=== PATIENT | female | born 1980 | race Caucasian/White ===

== ENCOUNTER → 2017-03-10 | Outpatient (CLI) | payer SELFPAY ==
--- NOTE | 2017-03-10 15:33 | US ---
EXAMINATION: Left breast ultrasound HISTORY: Lump COMPARISON: None TECHNIQUE: Grayscale and color Doppler images obtained within the upper outer left breast within the region of concern. FINDINGS: There is a tiny oval 5 x 2 mm hypodensity within the upper outer quadrant of the left s[address] near the axilla. This demonstrates no shadowing or internal color Doppler flow. Given the locatio n and appearance this likely represents a tiny lymph node. However no hilum is identified. IMPRESSION: 1. Probable tiny lymph node within the upper outer quadrant. Follow-up in 6 months may be beneficial .
== END ==
LOC: MW.US 10:59
PROVIDERS: ATTEND Obstetrics & Gynecology
DX: N63 Unspecified lump in breast (principal)
CPT/HCPCS: 76642-LT; 76642-LT-26

== ENCOUNTER 2019-02-10 09:24 | Emergency (ER) | payer BC ==
--- NOTE | 2019-02-10 10:35 | EDM.PDOC ---
ED HPI GENERAL MEDICAL PROBLEM - General Chief Complaint: Lower Extremity Injury/Pain Stated Complaint: FOOT PAIN Time Seen by Provider: 02/10/19 10:06 Source of Information: Reports: Patient History Limitations: Reports: No Limitations - History of Present Illness INITIAL COMMENTS - FREE TEXT/NARRATIVE: HISTORY AND PHYSICAL: History of present illness: Patient is a 38-year-old female who presents to the emergency room today with complaints of right heel pain. She states that when she bears weight or stretches the posterior calf she can feel pain from the bottom of her heel going up to the calf, describes this as pain in the heel but a stretching sensation in the. She denies any injury, trauma or falls. She is able to ambulate although does notice pain to the pinpoint area. She denies any fever, chills, chest pain, shortness of breath or cough. Denies any GI or symptoms. Review of systems: As per history of present illness and below otherwise all systems reviewed and negative. Past medical history: As per history of present illness and as reviewed below otherwise noncontributory. Surgical history: As per history of present illness and as reviewed below otherwise noncontributory. Social history: See social history for further information Family history: As per history of present illness and as reviewed below otherwise noncontributory. Physical exam: General: Well-developed and well-nourished 38 year old female. Alert and oriented. Nontoxic appearing and in no acute distress. HEENT: Atraumatic, normocephalic, pupils equal and reactive bilaterally, negative for conjunctival pallor or scleral icterus, mucous membranes moist, neck supple, nontender, trachea midline. No drooling or trismus noted. No meningeal signs. No hot potato voice noted. Lungs: Clear to auscultation, breath sounds equal bilaterally, chest nontender. Heart: S1S2, regular rate and rhythm without overt murmur Abdomen: Soft, nondistended, nontender. Pelvis: Stable nontender. Genitourinary: Deferred. Rectal: Deferred. Skin: Intact, warm, dry. No lesions or rashes noted. Extremities: Atraumatic, negative for cords or calf pain. Neurovascular unremarkable. Neuro: Awake, alert, oriented. Cranial nerves II through XII unremarkable. Cerebellum unremarkable. Motor and sensory unremarkable throughout. Exam nonfocal. Notes: X-ray shows no acute findings. Patient's symptomatology and examination is consistent with plantar fasciitis. We discussed supportive care measures were reviewed and discussed. Encouraged her to follow-up with podiatry. Voices understanding and is agreeable to plan of care. Denies any further questions or concerns at this time. Diagnostics: Calcaneus x-ray Therapeutics: None Prescription: Diclofenac Impression: Plantar fasciitis, right Plan: 1. Over the next few days to Try to rest, avoiding any strenuous physical activity. Please make sure you have good arch support in shoes. 2. You may perform stretching and strengthening exercises (tennis ball, flexing up/own with or without a band, towel stretch) 3. Prescribed anti-inflammatory medication routinely with food as we discussed. 4. Follow-up with your primary care provider as we discussed. Return to the ED as needed and as discussed. Definitive disposition and diagnosis as appropriate pending reevaluation and review of above. Right Foot Pain Score (Numeric/FACES): 5 - Related Data Allergies Allergy/AdvReac Type Severity Reaction Status Date / Time No Known Allergies Allergy Verified 02/10/19 09:31 Home Meds: Home Meds Multivitamin [Multivitamins] 1 tab PO DAILY 04/01/16 [History] Diclofenac Sodium [Voltaren] 50 mg PO TID PRN #30 tab.ec 02/10/19 [Rx] traMADol [Ultram] 50 mg PO Q6H PRN #10 tab 02/10/19 [Rx] Past Medical History - Past Health History Medical/Surgical History: Denies Medical/Surgical History HEENT History: Reports: None Other HEENT History: Tubes in both ears Cardiovascular History: Reports: None Respiratory History: Reports: None Gastrointestinal History: Reports: None SAUTE CHEF History: Reports: Musculoskeletal History: Reports: None Neurological History: Reports: None Psychiatric History: Reports: Depression Endocrine/Metabolic History: Reports: None Hematologic History: Reports: None Immunologic History: Reports: None Oncologic (Cancer) History: Reports: None Dermatologic History: Reports: None - Infectious Disease History Infectious Disease History: Reports: Chicken Pox - Past Surgical History Head Surgeries/Procedures: Reports: None HEENT Surgical History: Reports: Adenoidectomy, Tonsillectomy Female Surgical History: Reports: Breast Implant, Section, LEEP Social & Family History - Family History Family Medical History: Noncontributory - Tobacco Use Smoking Status *Q: Current Every Day Smoker Years of Tobacco use: 4 Packs/Tins Daily: 1 - Caffeine Use Caffeine Use: Reports: Coffee, Soda - Recreational Drug Use Recreational Drug Use: No Review of Systems - Review of Systems Review Of Systems: ROS reveals no pertinent complaints other than HPI. ED EXAM, GENERAL - Physical Exam Exam: See Below (See dictation) Course - Vital Signs Last Recorded V/S: Last Vital Signs Temp 97.6 F 02/10/19 09:31 Pulse 70 02/10/19 11:05 Resp 18 02/10/19 11:05 BP 113/66 02/10/19 11:05 Pulse Ox 98 02/10/19 11:05 Departure - Departure Time of Disposition: 10:34 Disposition: Home, Self-Care 01 Clinical Impression: Plantar fasciitis of right foot - Discharge Information Prescriptions: Diclofenac Sodium [Voltaren] 50 mg PO TID PRN #30 tab.ec PRN Reason: Pain traMADol [Ultram] 50 mg PO Q6H PRN #10 tab PRN Reason: Pain Instructions: Plantar Fasciitis With Rehab-SportsMed Referrals: Jad Mendoza MD [Primary Care Provider] - Forms: ED Department Discharge Additional Instructions: The following information is given to patients seen in the emergency department who are being discharged to home. This information is to outline your options for follow-up care. We provide all patients seen in our emergency department with a follow-up referral. The need for follow-up, as well as the timing and circumstances, are variable depending upon the specifics of your emergency department visit. If you don't have a primary care physician on staff, we will provide you with a referral. We always advise you to contact your personal physician following an emergency department visit to inform them of the circumstance of the visit and for follow-up with them and/or the need for any referrals to a consulting specialist. The emergency department will also refer you to a specialist when appropriate. This referral assures that you have the opportunity for follow-up care with a specialist. All of these measure are taken in an effort to provide you with optimal care, which includes your follow-up. Under all circumstances we always encourage you to contact your private physician who remains a resource for coordinating your care. When calling for follow-up care, please make the office aware that this follow-up is from your recent emergency room visit. If for any reason you are refused follow-up, please contact the [facility] Emergency Department at and asked to speak to the emergency department charge nurse. [facility] [address] [address] [facility] [address] [place] [id number] [facility] [address] [place] [id number] 1. Over the next few days to avoid any strenuous physical activity. Please make sure you have good arch support in shoes. 2. You may perform stretching and strengthening exercises (tennis ball, flexing up/own with or without a band, towel stretch) 3. Prescribed anti-inflammatory medication routinely with food as we discussed. 4. Follow-up with your primary care provider as we discussed. Return to the ED as needed and as discussed.
--- NOTE | 2019-02-10 10:45 | CR ---
INDICATION: pain in heel to the arch of foot and up towards ankle. no injury. pain started yesterday COMPARISON: None. FINDINGS: Two views of the right calcaneus demonstrate no evidence of fracture or dislocation. No suspicious bony sclerosis or periosteal reaction. Early Achilles insertional enthesophyte formation. Soft tissues are unremarkable. IMPRESSION: No acute osseous abnormality. Dictated by Jacob Navarro MD @ 02/10/2019 10:43:00 AM Dictated by: Jacob Navarro MD @ 02/10/2019 10:43:22 (Electronically Signed)
[2019-02-10 11:12] VITALS: BP 113/66
== END 2019-02-10 11:05 | disposition home or self-care (01) ==
LOC: MW.ED 09:24
DX: M72.2 Plantar fascial fibromatosis (principal); F17.210 Nicotine dependence, cigarettes, uncomplicated; Z79.899 Other long term (current) drug therapy
CPT/HCPCS: 73650-26-RT; 73650-RT; 99283-25

== ENCOUNTER 2019-02-19 15:30 | Emergency (ER) | payer BC ==
--- NOTE | 2019-02-19 16:05 | EDM.PDOC ---
ED HPI GENERAL MEDICAL PROBLEM - General Chief Complaint: Gastrointestinal Problem Stated Complaint: ANAL BLEEDING Time Seen by Provider: 02/19/19 15:55 Source of Information: Reports: Patient History Limitations: Reports: No Limitations - History of Present Illness INITIAL COMMENTS - FREE TEXT/NARRATIVE: HISTORY AND PHYSICAL: History of present illness: Patient is a 38-year-old female presents to the ED today with concerns of rectal bleeding. Patient states that she has had rectal bleeding off and on since her several years ago. Patient states that over the past couple weeks with her bowel movement she has had a large amount of blood. She states that while she was at work today she had gone to the bathroom. She said that when she got back to her desk, blood had gone all the way down her pant leg. Patient states she's had large amounts of blood like this happen on several occasions but worse over the past couple days. Patient states that since it has been worsening, she has been taking MiraLAX so she will have diarrhea. She states that solid bowel movements make the bleeding even worse. Patient does routinely follow with Dr. Mendoza. Patient states she does have some cramping after bowel movements but does not have constant abdominal pain. Upon arrival to the ED she does not have any abdominal pain. Patient denies fever, chills, nausea, vomiting, burning with urination, vaginal bleeding, blood in her urine, shortness of breath, cough, palpitations, chest pain, or all other GI, , respiratory, or cardiovascular concerns. Patient denies any health history. Review of systems: As per history of present illness and below otherwise all systems reviewed and negative. Past medical history: As per history of present illness and as reviewed below otherwise noncontributory. Surgical history: As per history of present illness and as reviewed below otherwise noncontributory. Social history: See social history for further information Family history: As per history of present illness and as reviewed below otherwise noncontributory. Physical exam: General: Patient is alert, oriented, and in no acute distress. She is sitting comfortable on exam table. HEENT: Atraumatic, normocephalic, pupils equal and reactive bilaterally, negative for conjunctival pallor or scleral icterus, mucous membranes moist, TMs normal bilaterally, throat clear, neck supple, nontender, trachea midline. No drooling or trismus noted. No meningeal signs. No hot potato voice noted. Lungs: Clear to auscultation, breath sounds equal bilaterally, chest nontender. Heart: S1S2, regular rate and rhythm without overt murmur Abdomen: Soft, nondistended, nontender. Negative for masses or hepatosplenomegaly. Negative for costovertebral tenderness. Pelvis: Stable nontender. Genitourinary: Deferred. Rectal: There is a 1 cm x 1 cm external hemorrhoid that is painful to palpation. Hemoccult positive. Rectal tone intact. No obvious fissures or rashes. No rectal masses noted. Skin: Intact, warm, dry. No lesions or rashes noted. Extremities: Atraumatic, negative for cords or calf pain. Neurovascular unremarkable. Neuro: Awake, alert, oriented. Cranial nerves II through XII unremarkable. Cerebellum unremarkable. Motor and sensory unremarkable throughout. Exam nonfocal. Notes: On exam, patient does have an external hemorrhoid which is painful to palpation. Discussed the importance for follow up with her primary care provider. Supportive care measures were reviewed and discussed. Voices understanding and is agreeable to plan of care. Denies any further questions or concerns at this time. Diagnostics: CBC, CMP, Hemoccult Therapeutics: None Prescription: Anusol Impression: External hemorrhoid Plan: 1. Apply medication as prescribed. You can alternate ibuprofen and Tylenol for pain and discomfort. 2. Follow-up with your primary care provider as discussed. 3. Return to the ED as needed and as discussed. Definitive disposition and diagnosis as appropriate pending reevaluation and review of above. - Related Data Allergies Allergy/AdvReac Type Severity Reaction Status Date / Time No Known Allergies Allergy Verified 02/19/19 16:04 Home Meds: Home Meds Multivitamin [Multivitamins] 1 tab PO DAILY 04/01/16 [History] Diclofenac Sodium [Voltaren] 50 mg PO TID PRN #30 tab.ec 02/10/19 [Rx] traMADol [Ultram] 50 mg PO Q6H PRN #10 tab 02/10/19 [Rx] Hydrocortisone [Anusol-HC] 30 gm RC QID PRN #1 tube 02/19/19 [Rx] Past Medical History - Past Health History Medical/Surgical History: Denies Medical/Surgical History HEENT History: Reports: None Other HEENT History: Tubes in both ears Cardiovascular History: Reports: None Respiratory History: Reports: None Gastrointestinal History: Reports: None 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: Musculoskeletal History: Reports: None Neurological History: Reports: None Psychiatric History: Reports: Depression Endocrine/Metabolic History: Reports: None Hematologic History: Reports: None Immunologic History: Reports: None Oncologic (Cancer) History: Reports: None Dermatologic History: Reports: None - Infectious Disease History Infectious Disease History: Reports: Chicken Pox - Past Surgical History Head Surgeries/Procedures: Reports: None HEENT Surgical History: Reports: Adenoidectomy, Tonsillectomy Female Surgical History: Reports: Breast Implant, Section, LEEP Social & Family History - Family History Family Medical History: Noncontributory - Caffeine Use Caffeine Use: Reports: Coffee, Soda ED ROS GENERAL - Review of Systems Review Of Systems: ROS reveals no pertinent complaints other than HPI. ED EXAM, GI/ABD - Physical Exam Exam: See Below (See dictation) Course - Vital Signs Last Recorded V/S: Last Vital Signs Temp 99.1 F 02/19/19 16:02 Pulse 89 02/19/19 16:02 Resp 16 02/19/19 16:02 BP 100/53 L 02/19/19 16:02 Pulse Ox 96 02/19/19 16:02 - Orders/Labs/Meds Orders: Active Orders 24 hr Category Date Time Status Orthostatic Vital Signs [RC] ASDIRECTED Care 02/19/19 16:02 Active CMP [COMPREHENSIVE METABOLIC PN,CMP] [CHEM] Stat Lab 02/19/19 16:05 Received Labs: Laboratory Tests 02/19/19 Range/Units 16:05 WBC 9.75 (4.0-11.0) K/uL RBC 4.24 L (4.30-5.90) M/uL Hgb 13.2 (12.0-16.0) g/dL Hct 37.9 (36.0-46.0) % MCV 89.4 (80.0-98.0) fL MCH 31.1 (27.0-32.0) pg MCHC 34.8 (31.0-37.0) g/dL RDW Std Deviation 38.9 (28.0-62.0) fl RDW Coeff of Mari 12 (11.0-15.0) % Plt Count 269 (150-400) K/uL MPV 9.30 (7.40-12.00) fL Neut % (Auto) 66.8 (48.0-80.0) % Lymph % (Auto) 25.8 (16.0-40.0) % [place] % (Auto) 5.5 (0.0-15.0) % Eos % (Auto) 1.6 (0.0-7.0) % Baso % (Auto) 0.3 (0.0-1.5) % Neut # (Auto) 6.5 H (1.4-5.7) K/uL Lymph # (Auto) 2.5 H (0.6-2.4) K/uL [place] # (Auto) 0.5 (0.0-0.8) K/uL Eos # (Auto) 0.2 (0.0-0.7) K/uL Baso # (Auto) 0.0 (0.0-0.1) K/uL Nucleated RBC % 0.0 /100WBC Nucleated RBCs # 0 K/uL Departure - Departure Time of Disposition: 16:34 Disposition: Home, Self-Care 01 Clinical Impression: External hemorrhoid - Discharge Information Prescriptions: Hydrocortisone [Anusol-HC] 30 gm RC QID PRN #1 tube PRN Reason: Bleeding Instructions: Hemorrhoids, [id number] Referrals: PCP,Unknown [Primary Care Provider] - Forms: ED Department Discharge Additional Instructions: The following information is given to patients seen in the emergency department who are being discharged to home. This information is to outline your options for follow-up care. We provide all patients seen in our emergency department with a follow-up referral. The need for follow-up, as well as the timing and circumstances, are variable depending upon the specifics of your emergency department visit. If you don't have a primary care physician on staff, we will provide you with a referral. We always advise you to contact your personal physician following an emergency department visit to inform them of the circumstance of the visit and for follow-up with them and/or the need for any referrals to a consulting specialist. The emergency department will also refer you to a specialist when appropriate. This referral assures that you have the opportunity for follow-up care with a specialist. All of these measure are taken in an effort to provide you with optimal care, which includes your follow-up. Under all circumstances we always encourage you to contact your private physician who remains a resource for coordinating your care. When calling for follow-up care, please make the office aware that this follow-up is from your recent emergency room visit. If for any reason you are refused follow-up, please contact the [facility] Emergency Department at and asked to speak to the emergency department charge nurse. [facility] [address] [place] [id number] [facility] [address] [place] [id number] 1. Apply medication as prescribed. You can alternate ibuprofen and Tylenol for pain and discomfort. 2. Follow-up with your primary care provider as discussed. 3. Return to the ED as needed and as discussed. - My Orders Last 24 Hours: My Active Orders 02/19/19 16:02 Orthostatic Vital Signs [RC] ASDIRECTED 02/19/19 16:05 CMP [COMPREHENSIVE METABOLIC PN,CMP] [CHEM] Stat - Assessment/Plan Last 24 Hours: My Active Orders 02/19/19 16:02 Orthostatic Vital Signs [RC] ASDIRECTED 02/19/19 16:05 CMP [COMPREHENSIVE METABOLIC PN,CMP] [CHEM] Stat
[2019-02-19 16:38] LABS: CHLORIDE,CL 104 mmol/L (98-107); SODIUM,NA 138 mmol/L (136-145)
[2019-02-19 16:55] VITALS: BP 121/73
== END 2019-02-19 16:56 | disposition home or self-care (01) ==
LOC: MW.ED 15:30
DX: K64.4 Residual hemorrhoidal skin tags (principal); Z79.899 Other long term (current) drug therapy
CPT/HCPCS: 36415; 80053; 85025; 99283

== ENCOUNTER 2019-03-20 08:44 | Day surgery (SDC) | payer BC ==
[~2019-03-20 08:44] MED LIST: Lactated Ringers 1,000 ML IV SCH; Sodium Chloride 0.9% 10 ML SDV IV PRN; Sodium Chloride 0.9% 10 ML Syringe FLUSH PRN; Sodium Chloride 0.9% 2.5 ML Syringe FLUSH PRN
[2019-03-20] MEDS ORDERED: Midazolam 1 MG/ML 2 ML SDV ONE (10:06)
[2019-03-20] MEDS ORDERED: Lidocaine 2% 5 ML SDV ONE (10:06)
[2019-03-20] MEDS ORDERED: fentaNYL 100 MCG/2 ML SDV ONE (10:06)
[2019-03-20] MEDS ORDERED: Propofol 200 MG/20 ML SDV ONE ×2 (10:07→11:08)
[2019-03-20] MEDS ORDERED: Scopolamine 1.5 MG Transdermal Patch TOP ONE (10:25)
--- NOTE | 2019-03-20 10:35 | PCM.PREANE ---
Preanesthetic Assessment - Anesthesia/Transfusion/Family Hx Type of Anesthesia Reaction: Excessive Nausea/Vomiting (scopolamine patch works well) Other Type of Anesthesia Reaction Comment: "N&V with c/sections" Family History of Anesthesia Reaction: No Transfusion History: No Prior Transfusion(s) - Review of Systems General: No Symptoms Pulmonary: No Symptoms Cardiovascular: No Symptoms Gastrointestinal: No Symptoms Neurological: No Symptoms Other: Reports: None - Physical Assessment NPO Status Date: 03/20/19 NPO Status Time: 07:00 Respiratory Rate: 18 Vital Signs: Last Vital Signs Temp 36.2 C 03/20/19 09:00 Pulse 72 03/20/19 09:00 Resp 18 03/20/19 09:00 BP 107/69 03/20/19 09:00 Pulse Ox Height: 1.63 m Weight: 51.71 kg ASA Class: 2 Mental Status: Alert & Oriented x3 Airway Class: Mallampati = 2 Dentition: Reports: Normal Dentition Thyro-Mental Finger Breadths: 3 Mouth Opening Finger Breadths: 3 ROM/Head Extension: Full Lungs: Clear to Auscultation, Normal Respiratory Effort Cardiovascular: Regular Rate, Regular Rhythm - Lab Values: Laboratory Last Values Urine HCG, Qual NEGATIVE (NEGATIVE) 03/20/19 09:15 - Allergies Allergies/Adverse Reactions: Allergies Allergy/AdvReac Type Severity Reaction Status Date / Time No Known Allergies Allergy Verified 03/15/19 13:49 - Anesthesia Plan Pre-Op Medication Ordered: Other (scopolamine patch risks and benefits discussed. patient and significant other know to remove the patch on TuesdayMarch 23. ) - Acknowledgements Anesthesia Type Planned: MAC Pt an Appropriate Candidate for the Planned Anesthesia: Yes Alternatives and Risks of Anesthesia Discussed w Pt/Guardian: Yes Pt/Guardian Understands and Agrees with Anesthesia Plan: Yes PreAnesthesia Questionnaire - Past Health History Medical/Surgical History: Denies Medical/Surgical History HEENT History: Reports: None Cardiovascular History: Reports: None Respiratory History: Reports: Other (See Below) (chronic tobacco use for 4 years.) Gastrointestinal History: Reports: GERD (noted in chart, but patient denies today), Hemorrhoids Genitourinary History: Reports: None 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: Musculoskeletal History: Reports: Back Pain, Chronic (sacral back pain), Other ( See Below) (bilateral plantar fasciitis, diffuse leg pain) Neurological History: Reports: None Psychiatric History: Reports: Depression Endocrine/Metabolic History: Reports: None Hematologic History: Reports: None Immunologic History: Reports: None Oncologic (Cancer) History: Reports: None Dermatologic History: Reports: None - Infectious Disease History Infectious Disease History: Reports: Chicken Pox - Past Surgical History Head Surgeries/Procedures: Reports: None HEENT Surgical History: Reports: Adenoidectomy, Myringotomy w Tube(s), Naso- Sinus Surgery, Tonsillectomy Other HEENT Surgeries/Procedures: cholesteatoma surgery, Cardiovascular Surgical History: Reports: None Respiratory Surgical History: Reports: None GI Surgical History: Reports: None Female Surgical History: Reports: Breast Implant, Section, LEEP Endocrine Surgical History: Reports: None Neurological Surgical History: Reports: None Musculoskeletal Surgical History: Reports: None Oncologic Surgical History: Reports: None Dermatological Surgical History: Reports: None - SUBSTANCE USE Smoking Status *Q: Current Every Day Smoker Tobacco Use Within Last Twelve Months: Cigarettes Days Per Week of Alcohol Use: 0 (history of etoh abuse, NONE NOW for 16 years) Recreational Drug Use History: No - HOME MEDS Home Medications: Home Meds RX: Multivitamin [Multivitamins] 1 tab PO DAILY 04/01/16 [History] Hydrocortisone [Anusol-HC] 1 applic RECTAL ASDIRECTED PRN 03/16/19 [History] RX: Omeprazole 20 mg PO DAILY 03/16/19 [History] - CURRENT (IN HOUSE) MEDS Current Meds: Current Medications Lactated Ringer's (Ringers, Lactated) 1,000 mls @ 125 mls/hr IV ASDIRECTED SOMMER Last Admin: 03/20/19 09:29 Dose: 125 mls/hr Lactated Ringer's (Ringers, Lactated) 1,000 mls @ 125 mls/hr IV ASDIRECTED SOMMER Sodium Chloride (Saline Flush) 10 ml FLUSH ASDIRECTED PRN PRN Reason: Keep Vein Open Sodium Chloride (Saline Flush) 2.5 ml FLUSH ASDIRECTED PRN PRN Reason: Keep Vein Open Sodium Chloride (Saline Flush) 10 ml FLUSH ASDIRECTED PRN PRN Reason: Keep Vein Open Sodium Chloride (Saline Flush) 2.5 ml FLUSH ASDIRECTED PRN PRN Reason: Keep Vein Open Sodium Chloride (Normal Saline) 10 ml IV ASDIRECTED PRN PRN Reason: IV Use Sodium Chloride (Saline Flush) 10 ml FLUSH ASDIRECTED PRN PRN Reason: Keep Vein Open Sodium Chloride (Saline Flush) 2.5 ml FLUSH ASDIRECTED PRN PRN Reason: Keep Vein Open Sodium Chloride (Normal Saline) 10 ml IV ASDIRECTED PRN PRN Reason: IV Use Discontinued Medications Fentanyl (Sublimaze) Confirm Administered Dose 100 mcg .ROUTE .STK-MED ONE Stop: 03/20/19 10:07 Lidocaine (Xylocaine-Mpf 2%) Confirm Administered Dose 5 ml .ROUTE .STK-MED ONE Stop: 03/20/19 10:07 Midazolam HCl (Versed 1 Mg/Ml) Confirm Administered Dose 2 mg .ROUTE .STK-MED ONE Stop: 03/20/19 10:07 Propofol (Diprivan 20 Ml) Confirm Administered Dose 200 mg .ROUTE .STK-MED ONE Stop: 03/20/19 10:08 Scopolamine (Transderm-Scop) 1.5 mg TOP ONETIME ONE Stop: 03/20/19 10:26
--- NOTE | 2019-03-20 11:20 | PCM.OPNOTE ---
- General Post-Op/Procedure Note Date of Surgery/Procedure: 03/20/19 Operative Procedure(s): diagnostic EGD and colonoscopy Findings: normal EGD and grade 4 hemorrhoids Pre Op Diagnosis: GERD, bright red blood per rectum, change in bowel habits Post-Op Diagnosis: grade 4 hemorrhoids, normal EGD Anesthesia Technique: MAC Primary Surgeon: Angella Buckley Pathology: stomach biopsies EBL in mLs: 0 Condition: Good
--- NOTE | 2019-03-20 11:45 | PCM.POSTAN ---
POST ANESTHESIA ASSESSMENT - MENTAL STATUS Mental Status: Alert, Oriented - RESPIRATORY Respiratory Status: Respiratory Rate WNL, Airway Patent, O2 Saturation Stable - CARDIOVASCULAR CV Status: Pulse Rate WNL, Blood Pressure Stable - GASTROINTESTINAL GI Status: No Symptoms - POST OP HYDRATION Hydration Status: Adequate & Stable - OBSERVATIONS Free Text/Narrative:: The patient tolerated the procedure well. There were no apparent anesthetic complications at this time.
[2019-03-20 11:56] VITALS: BP 108/59
--- NOTE | 2019-03-20 18:42 | OR ---
SURGEON: ALLY MERCER MD DATE OF PROCEDURE: 03/20/2019 PREOPERATIVE DIAGNOSIS: Reflux, bright red bleeding per rectum. POSTOPERATIVE DIAGNOSIS: Normal-appearing esophagogastroduodenoscopy, grade 4 hemorrhoid. PROCEDURE PERFORMED: Diagnostic EGD and colonoscopy. ANESTHESIA: MAC. INSTRUMENT USED: Olympus endoscope and colonoscope. EXTENT OF EXAM: To the second portion of duodenum, to the cecum. PREPARATION: Good. LIMITATIONS: None. INDICATION FOR EXAMINATION: The patient is a 38-year-old female with complaints of reflux as well as bright red bleeding per rectum. The decision was made to proceed with diagnostic EGD and colonoscopy. I explained the procedure, expected perioperative course, and risks including bleeding, infection, or damage to surrounding structures including perforation. The patient verbalized understanding and wishes to proceed. PROCEDURE IN DETAIL: The patient was brought to the endoscopy suite and placed in a left lateral decubitus position. A time-out was completed verifying the patient's name, age, date of , allergies, and procedure to be performed. A bite block was placed in the patient's mouth. Monitored anesthesia care was induced and continuous oxygen was provided via nasal cannula throughout the procedure. After adequate sedation was achieved, a well lubricated endoscope was placed in the patient's mouth and advanced under direct visualization to the second portion of duodenum. This appeared normal and a photograph was taken. The scope was then straightened out and fully withdrawn while examining the color, texture, anatomy, and integrity mucosa of the upper GI tract. The duodenum was appeared free of pathology. The scope was brought into the stomach and a photograph taken of the pylorus as well as the GE junction. Both appeared normal. The gastric mucosa was free of gross inflammation or ulceration. Biopsies were taken of the gastric antrum, body, and fundus and sent for histologic review and H. pylori testing. The scope was then brought into the distal esophagus and a photograph taken of the Z-line. This appeared normal. There was no evidence of a hiatal hernia. Mucosa of the esophagus was free of inflammation or ulceration. The scope was then removed and this portion of procedure was terminated. A digital rectal exam was then performed. The patient had a large grade 4 hemorrhoid that was noticed. A well lubricated colonoscope was inserted into the rectum and advanced under direct visualization to the level of the cecum. The cecum was identified by both visual and anatomic landmarks. A photograph was taken of the cecal cap as well as with the scope retroflexed within the cecum. The scope was then straightened out and fully withdrawn while examining the color, texture, anatomy, and integrity of the mucosa from the cecum to the anal canal. The findings were consistent with normal colonic mucosa. The scope was then retroflexed within the rectum, and again, I noted an enlarged hemorrhoidal column. The scope was then straightened out and fully withdrawn. The cecum to anus time was 7 minutes. The patient tolerated the procedure well and was taken to PACU in stable condition. ENDOSCOPIC DIAGNOSIS: Normal-appearing esophagogastroduodenoscopy, grade 4 hemorrhoid. RECOMMENDATIONS: Follow up in clinic in 2 weeks. MONI VILLARREAL /[id number]
--- NOTE | 2019-03-21 09:51 | PCM48HPAN ---
Post Anesthesia Note - EVALUATION WITHIN 48HRS OF ANESTHETIC Vital Signs in Normal Range: Yes Patient Participated in Evaluation: Yes Respiratory Function Stable: Yes Airway Patent: Yes Cardiovascular Function Stable: Yes Hydration Status Stable: Yes Pain Control Satisfactory: Yes Nausea and Vomiting Control Satisfactory: Yes Mental Status Recovered: Yes Resp Rate: 15 - COMMENTS/OBSERVATIONS Free Text/Narrative:: The patient was seen and evaluated prior to discharge. She had no complaints at that time. Discharged to home per criteria.
== END 2019-03-20 12:25 | disposition home or self-care (01) ==
LOC: MW.SDS 08:44
PROVIDERS: ATTEND Surgery
DX: K62.5 Hemorrhage of anus and rectum (principal); K64.3 Fourth degree hemorrhoids; R19.4 Change in bowel habit; R68.81 Early satiety; R14.0 Abdominal distension (gaseous); F17.210 Nicotine dependence, cigarettes, uncomplicated; Z79.52 Long term (current) use of systemic steroids; Z79.899 Other long term (current) drug therapy
CPT/HCPCS: 43239; 45378; 81025; A9270; J2001; J2250; J2704; J3010; J7120; 88305; 88312

== ENCOUNTER 2019-10-16 09:54 | Day surgery (SDC) | payer BC ==
[~2019-10-16 09:54] MED LIST changes: -Lactated Ringers 1,000 ML IV SCH; +ceFAZolin 1 GM in Premix Bag 1 BAG IV ONE
[2019-10-16] MEDS ORDERED: Scopolamine 1.5 MG Transdermal Patch TRDERM PRN (10:06)
[2019-10-16] MEDS: Lactated Ringers 1,000 ML IV SCH ×2 (10:48→18:37)
--- NOTE | 2019-10-16 10:48 | PCM.PREANE ---
Preanesthetic Assessment - Anesthesia/Transfusion/Family Hx Anesthesia History: Prior Anesthesia Reaction Other Type of Anesthesia Reaction Comment: "N&V with c/sections" Family History of Anesthesia Reaction: No Transfusion History: No Prior Transfusion(s) Intubation History: Unknown - Review of Systems General: No Symptoms Pulmonary: No Symptoms Cardiovascular: No Symptoms Gastrointestinal: No Symptoms Neurological: No Symptoms Other: Reports: None - Physical Assessment Height: 5 ft 3.5 in Weight: 53.07 kg ASA Class: 2 Mental Status: Alert & Oriented x3 Airway Class: Mallampati = 2 Dentition: Reports: Normal Dentition Thyro-Mental Finger Breadths: 3 Mouth Opening Finger Breadths: 3 ROM/Head Extension: Full Lungs: Clear to Auscultation, Normal Respiratory Effort Cardiovascular: Regular Rate, Regular Rhythm - Lab Values: Laboratory Last Values WBC 8.80 K/uL (4.0-11.0) 10/16/19 10:23 RBC 4.34 M/uL (4.30-5.90) 10/16/19 10:23 Hgb 13.3 g/dL (12.0-16.0) 10/16/19 10:23 Hct 38.6 % (36.0-46.0) 10/16/19 10:23 MCV 88.9 fL (80.0-98.0) 10/16/19 10:23 MCH 30.6 pg (27.0-32.0) 10/16/19 10:23 MCHC 34.5 g/dL (31.0-37.0) 10/16/19 10:23 RDW Std Deviation 39.2 fl (28.0-62.0) 10/16/19 10:23 RDW Coeff of Mari 12 % (11.0-15.0) 10/16/19 10:23 Plt Count 301 K/uL (150-400) 10/16/19 10:23 MPV 9.60 fL (7.40-12.00) 10/16/19 10:23 Nucleated RBC % 0.0 /100WBC 10/16/19 10:23 Nucleated RBCs # 0 K/uL 10/16/19 10:23 - Allergies Allergies/Adverse Reactions: Allergies Allergy/AdvReac Type Severity Reaction Status Date / Time No Known Allergies Allergy Verified 10/11/19 16:20 - Blood Blood Available: No - Anesthesia Plan Pre-Op Medication Ordered: None - Acknowledgements Anesthesia Type Planned: General Anesthesia Pt an Appropriate Candidate for the Planned Anesthesia: Yes Alternatives and Risks of Anesthesia Discussed w Pt/Guardian: Yes Pt/Guardian Understands and Agrees with Anesthesia Plan: Yes PreAnesthesia Questionnaire - Past Health History Medical/Surgical History: Denies Medical/Surgical History HEENT History: Reports: None Other HEENT History: hx of fx nose Cardiovascular History: Reports: None Respiratory History: Reports: Other (See Below) (chronic tobacco use for 4 years.) Gastrointestinal History: Reports: None Genitourinary History: Reports: None [employer] History: Reports: Musculoskeletal History: Reports: Back Pain, Chronic, Other (See Below) Other Musculoskeletal History: possible restless leg syndrome- just started on Gabapentin Neurological History: Reports: None Psychiatric History: Reports: Anxiety, Depression Endocrine/Metabolic History: Reports: None Hematologic History: Reports: None Immunologic History: Reports: None Oncologic (Cancer) History: Reports: None Dermatologic History: Reports: None - Infectious Disease History Infectious Disease History: Reports: Chicken Pox - Past Surgical History Other HEENT Surgeries/Procedures: cholesteatoma surgery, GI Surgical History: Reports: Colonoscopy (03/16) Female Surgical History: Reports: Breast Implant, Section (x2), LEEP (x2) - SUBSTANCE USE Smoking Status *Q: Former Smoker (quit 2 weeks ago) Tobacco Use Within Last Twelve Months: Cigarettes Recreational Drug Use History: No - HOME MEDS Home Medications: Home Meds Gabapentin [Neurontin] 300 mg PO BEDTIME 10/11/19 [History] - CURRENT (IN HOUSE) MEDS Current Meds: Current Medications Lactated Ringer's (Ringers, Lactated) 1,000 mls @ 100 mls/hr IV ASDIRECTED SOMMER Scopolamine (Transderm-Scop) 1.5 mg TRDERM Q72H PRN PRN Reason: Nausea Sodium Chloride (Saline Flush) 10 ml FLUSH ASDIRECTED PRN PRN Reason: Keep Vein Open Sodium Chloride (Saline Flush) 2.5 ml FLUSH ASDIRECTED PRN PRN Reason: Keep Vein Open Sodium Chloride (Normal Saline) 10 ml IV ASDIRECTED PRN PRN Reason: IV Use Discontinued Medications Cefazolin Sodium/Dextrose 1 gm (/ Premix) 50 mls @ 100 mls/hr IV ONETIME ONE Stop: 10/16/19 05:29
[2019-10-16] MEDS ORDERED: Propofol 200 MG/20 ML SDV ONE (10:53)
[2019-10-16] MEDS ORDERED: fentaNYL 250 MCG/5 ML SDV ONE (10:53)
[2019-10-16] MEDS ORDERED: Midazolam 1 MG/ML 2 ML SDV ONE (10:53)
[2019-10-16 10:54] LABS: BLOOD UREA NITROGEN,BUN 10 mg/dL (7.0-18.0); CARBON DIOXIDE,CO2 22.1 mmol/L (21.0-32.0); CHLORIDE,CL 108 mmol/L (98-107); GLUCOSE RANDOM 94 mg/dL (74-106); SODIUM,NA 142 mmol/L (136-145)
[2019-10-16] MEDS ORDERED: Dexamethasone 4 MG/ML 5 ML MDV ONE ×2 (10:56→10:58)
[2019-10-16] MEDS ORDERED: Ondansetron 4 MG/2 ML SDV ONE (10:56)
[2019-10-16] MEDS ORDERED: Methylene Blue 50 MG/10 ML Ampule ONE (11:10)
[2019-10-16] MEDS ORDERED: Bupivacaine 0.25% 10 ML SDV ONE (11:10)
[2019-10-16] MEDS ORDERED: Rocuronium 100 MG/10 ML Syringe ONE (11:40)
[2019-10-16] MEDS: Ondansetron 4 MG/2 ML SDV IVPUSH PRN ×2 (12:00→18:37)
[2019-10-16] MEDS ORDERED: Sodium Chloride 0.9% 20 ML ONE (12:10)
[2019-10-16] MEDS ORDERED: ceFAZolin 1 GM Vial ONE (12:10)
[2019-10-16] MEDS ORDERED: Fluorescein 5 ML Vial ONE (12:28)
[2019-10-16] MEDS ORDERED: Furosemide 40 MG/4 ML VIAL ONE (12:29)
[2019-10-16] MEDS ORDERED: HYDROmorphone 2 MG/ML Syringe ONE (12:34)
[2019-10-16] MEDS ORDERED: Glycopyrrolate 0.2 MG/ML SDV ONE (13:02)
[2019-10-16] MEDS ORDERED: Neostigmine Methylsulfate 1 MG/ML 5 ML Syringe ONE (13:02)
[2019-10-16] MEDS ORDERED: Atropine 0.1 MG/ML 10 ML Syringe IVPUSH PRN ×2 (13:06)
[2019-10-16] MEDS ORDERED: Naloxone 0.4 MG/ML Syringe IVPUSH PRN (13:06)
[2019-10-16] MEDS ORDERED: 50% Dextrose in Water 50 ML Syringe IVPUSH PRN (13:06)
[2019-10-16] MEDS ORDERED: Albuterol 0.083% 2.5 MG/3 ML Neb Soln NEB PRN (13:06)
[2019-10-16] MEDS ORDERED: EPINEPHrine 1:10,000 1 MG/10 ML Syringe IVPUSH PRN (13:06)
[2019-10-16] MEDS: Ketorolac 30 MG/ML SDV IVPUSH PRN ×2 (13:15→15:41)
[2019-10-16] MEDS ORDERED: Ketorolac 30 MG/ML SDV ONE (13:16)
[2019-10-16] MEDS ORDERED: Acetaminophen/oxyCODONE 325-5 MG Tab PO PRN (13:30)
[2019-10-16] MEDS ORDERED: Promethazine 25 MG/ML SDV IM PRN (13:30)
[2019-10-16] MEDS ORDERED: Ketorolac 30 MG/ML SDV IVPUSH ONE (13:30)
[2019-10-16] MEDS ORDERED: Morphine 4 MG/ML Syringe IVPUSH PRN (13:30)
[2019-10-16] MEDS ORDERED: Aluminum Hydroxide/Magnesium Hydroxide/Simethicone Susp 30 ML Cup PO PRN (13:30)
[2019-10-16] MEDS ORDERED: Belladonna Alkaloids/Opium 16.2-30 MG Supp RECTAL PRN (13:30)
--- NOTE | 2019-10-16 13:43 | PCM.OPNOTE ---
- General Post-Op/Procedure Note Date of Surgery/Procedure: 10/16/19 Operative Procedure(s): LAVH/bilateral salpingectomy/cystoscopy Findings: 8 week size uterus, normal appearing ovaries, bilateral patent ureters Pre Op Diagnosis: Cervical dysplasia Post-Op Diagnosis: Same Anesthesia Technique: General ET Tube Primary Surgeon: Eileen Sultana Plant Technician: Gracy Seo (1st) Plant Technician: Nelda Stern (2nd) Reason Plant Technician Was Necessary: exposure Fluid Replacement, Intraop: 2,000 EBL in mLs: 100 Complications: none known Condition: Stable Free Text/Narrative:: Dictation [id number]
[2019-10-16] MEDS: fentaNYL 100 MCG/2 ML SDV IVPUSH PRN ×2 (14:15→14:23)
--- NOTE | 2019-10-16 14:40 | PCM.POSTAN ---
POST ANESTHESIA ASSESSMENT - MENTAL STATUS Mental Status: Alert, Oriented - VITAL SIGNS Vital Signs: Last Vital Signs Temp 36.1 C 10/16/19 13:35 Pulse 47 L 10/16/19 14:30 Resp 11 L 10/16/19 14:30 BP 124/71 10/16/19 14:30 Pulse Ox 99 10/16/19 14:30 - RESPIRATORY Respiratory Status: Respiratory Rate WNL, Airway Patent, O2 Saturation Stable - CARDIOVASCULAR CV Status: Pulse Rate WNL, Blood Pressure Stable - GASTROINTESTINAL GI Status: No Symptoms - PAIN Pain Score: 0 - POST OP HYDRATION Hydration Status: Adequate & Stable - OBSERVATIONS Free Text/Narrative:: no anesthesia problems
[2019-10-16] MEDS: Nicotine 14 MG/24 Hr Patch TRDERM SCH (15:19)
--- NOTE | 2019-10-16 15:21 | OR ---
SURGEON: Eileen Sultana M.D. DATE OF PROCEDURE: 10/16/2019 PREOPERATIVE DIAGNOSIS: Cervical dysplasia, refractory. POSTOPERATIVE DIAGNOSIS: Cervical dysplasia, refractory. PROCEDURES: Total laparoscopic-assisted vaginal hysterectomy with bilateral salpingectomy, cystoscopy. PRIMARY SURGEON: Eileen Sultana MD. FIRST LEVELER: certified medical technician assistant: Yuki Seo. Second assist: Nelda Stern MD. ANESTHESIA: General endotracheal anesthesia. ESTIMATED BLOOD LOSS: 100 mL. FLUIDS: 2000 mL of crystalloid. COMPLICATIONS: None known. FINDINGS: A 6- to 8-week sized uterus. Normal-appearing ovaries. Bilateral patent ureters. DISPOSITION: The patient to PACU in stable condition. PROCEDURE DETAILS: Myla is a 39-year-old female who has ongoing difficulties with recurrent cervical dysplasia. She has already undergone LEEP procedure and now has abnormal Pap smear again. At this time, after further discussion, she would like to proceed with a definitive surgical intervention. She continues to be a tobacco user and is not interested in smoking cessation at this time. After risks of this procedure have been discussed, proper consent obtained. The patient was taken to the operating room where she underwent general endotracheal anesthesia, placed in modified dorsal lithotomy position, was prepped and draped in the usual sterile fashion. SCDs to lower extremities. Dawn to gravity. Received Ancef prophylactically. Time-out was performed. Speculum was introduced in the vagina. Anterior lip of the cervix was grasped with Yanely clamp. Cervix was gently dilated to 4 mm. Uterine manipulator was gently introduced. The balloon insufflated. All vaginal instruments were removed except for the uterine manipulator. Gloves changed, attention turned abdominally. Infraumbilically, region was prepped with 0.25% Marcaine. A 5 mm infraumbilical midline sagittal incision was created. Anterior abdominal wall was tented upward. Hemostat was used to dissect down to level of the fascia. Veress needle was introduced. Pneumoperitoneum was achieved. Veress needles removed. Trocar introduced with laparoscope. Peritoneal contents were identified. Under direct visualization, left lower quadrant and right lower quadrant trocars were placed after prepping the region with 0.25% Marcaine and creating 5 mm skin incisions. Uterus appeared mobile. Ureters were seen peristalsing a little away from the operative field. The left fallopian tube was able to be isolated with a grasper and salpingectomy was performed to the level of the cornua using LigaSure. Then, utilizing LigaSure, further pedicles involving the upper portion of the broad ligament, midportion of the broad ligament, lower portion of broad ligament including round ligament, upper base of the cardinal ligament, lower base of the cardinal ligament were able to be secured, cauterized, and transected. Anteriorly, bladder flap was created with LigaSure and overlying peritoneum was dissected away from the underlying cervix, lower uterine segment. In similar fashion, performed on the patient's right side. The fallopian tube was isolated, salpingectomy performed to level of the cornua. The broad ligaments were able to be secured, cauterized, transected to the round ligament, the cardinal ligament, to the level of the uterosacral ligament. At this juncture, laparoscopic instruments were removed. Pneumoperitoneum was released. Attention was turned vaginally. The hips and knees were now gently flexed. The patient was placed in Trendelenburg positioning. Weighted speculum was introduced, anterior Lutz. Cervix grasped with Yanely clamp, tented downward, and circumscribed with Bovie cautery. Anterior and posteriorly, the overlying mucosa was dissected away from underlying peritoneum. Posterior peritoneum was tented downward and entered sharply. Longer weighted speculum replaced the shorter. Peritoneal contents were identified. Anteriorly, the anterior peritoneum was tented upward and entered sharply. The bladder was now mobilized away from lower uterine segment with anterior Lutz. Tameka clamp was utilized on either side to secure the uterosacral ligament, transected, and suture ligated with 2-0 Vicryl. Further pedicle on either side was able to be secured, transected, and suture ligated. The uterus and fallopian tubes were now removed to be sent to pathology for further analysis. The pedicles were inspected and found to be hemostatic overall. The uterosacral ligament on either side was plicated to the vaginal mucosa. The posterior cuff was oozing slightly and therefore cauterized. Hemostasis evident thereafter. The cuff was closed using 0 Vicryl in continuous running locked fashion. The cuff line was inspected, found to be hemostatic. The Dawn balloon was desufflated and Dawn catheter was removed. Cystoscope was introduced using normal saline as distention media. The patient had received IV fluorescein and Lasix and fluorescein-dyed urine was seen streaming from the left ureteral orifice followed by the right ureteral orifice helping to ensure ureteral patency. Dome of the bladder was inspected and found to be intact. The bladder was drained. Cystoscope was removed. A Dawn catheter was placed. Vaginal cuff line was again inspected and found to be hemostatic. Gloves changed. Attention turned abdominally. Pneumoperitoneum was once again achieved. The pelvis was closely inspected. The pedicles were inspected, found to be hemostatic. Region was well irrigated, suction dried. Relief pressure was decreased to 5 and once again inspected, pedicles found to be hemostatic. The pneumoperitoneum was released. The right lower quadrant, left lower quadrant trocars were now removed under direct visualization followed by laparoscope and infraumbilical trocar after releasing as much of the pneumoperitoneum as possible. Skin edges were reapproximated using 2-0 Vicryl in a subcuticular fashion. Sponge, instrument, and needle count was correct x2. The patient tolerated the procedure well overall. She will go to PACU in stable condition, specimens to pathology. PATRICIO / CHERELLE /[id number]
--- NOTE | 2019-10-16 16:54 | PCM.SN ---
- Free Text/Narrative Note: Patient is doing well overall--dealing with some nausea, but no emesis. She is having cramping. Explained intraoperative findings and procedure> She is quite sensitive to narcotics, so will dose carefully. Pulse initially in the 40s but now up to 60s. Urine output is adequate. BP is stable. Continue postoperative cares. Ambulate halls tonight.
[2019-10-16] MEDS: Acetaminophen/oxyCODONE 325-5 MG Tab PO PRN (18:38)
[2019-10-16] MEDS: Docusate Sodium 100 MG Cap PO SCH (20:49)
[2019-10-17] MEDS: Acetaminophen/oxyCODONE 325-5 MG Tab PO PRN ×2 (01:15→07:17)
[2019-10-17] MEDS: Ondansetron 4 MG/2 ML SDV IVPUSH PRN (01:15)
[2019-10-17 06:38] LABS: BLOOD UREA NITROGEN,BUN 9 mg/dL (7.0-18.0); CARBON DIOXIDE,CO2 25.9 mmol/L (21.0-32.0); CHLORIDE,CL 106 mmol/L (98-107); GLUCOSE RANDOM 90 mg/dL (74-106); SODIUM,NA 139 mmol/L (136-145)
--- NOTE | 2019-10-17 07:05 | PCM48HPAN ---
Post Anesthesia Note - EVALUATION WITHIN 48HRS OF ANESTHETIC Vital Signs in Normal Range: Yes Patient Participated in Evaluation: Yes Respiratory Function Stable: Yes Airway Patent: Yes Cardiovascular Function Stable: Yes Hydration Status Stable: Yes Pain Control Satisfactory: Yes Nausea and Vomiting Control Satisfactory: Yes Mental Status Recovered: Yes Vital Signs: Last Vital Signs Temp 36.9 C 10/17/19 04:00 Pulse 62 10/17/19 04:00 Resp 15 10/17/19 04:00 BP 121/64 10/17/19 04:00 Pulse Ox 95 10/17/19 04:00
[2019-10-17 07:25] VITALS: BP 123/73; PULSE 52
[2019-10-17] MEDS: Nicotine 14 MG/24 Hr Patch TRDERM SCH (08:41)
[2019-10-17] MEDS: Docusate Sodium 100 MG Cap PO SCH (08:41)
--- NOTE | 2019-10-17 08:49 | PCM.SURGPN ---
- General Info Date of Service: 10/17/19 POD#: 1 Functional Status: Reports: Pain Controlled, Tolerating Diet, Ambulating, Urinating - Review of Systems General: Reports: Fatigue. Denies: Fever, Weakness Pulmonary: Denies: Shortness of Breath Cardiovascular: Denies: Chest Pain, Palpitations, Lightheadedness Gastrointestinal: Reports: Abdominal Pain (controlled with oral pain meds). Denies: Nausea, Vomiting Musculoskeletal: Reports: No Symptoms Skin: Reports: No Symptoms Neurological: Reports: No Symptoms Psychiatric: Reports: No Symptoms - Patient Data Vitals - Most Recent: Last Vital Signs Temp 37.0 C 10/17/19 07:24 Pulse 52 L 10/17/19 07:24 Resp 16 10/17/19 07:24 BP 123/73 10/17/19 07:24 Pulse Ox 95 10/17/19 07:24 Weight - Most Recent: 53.07 kg I&O - Last 24 Hours: Intake & Output 10/16/19 10/17/19 10/17/19 22:59 06:59 14:59 Intake Total 2472 Output Total 650 Balance 1822 Lab Results Last 24 Hrs: Laboratory Results - last 24 hr 10/16/19 10/16/19 10/16/19 Range/Units 10:23 10:23 10:23 WBC 8.80 (4.0-11.0) K/uL RBC 4.34 (4.30-5.90) M/uL Hgb 13.3 (12.0-16.0) g/dL Hct 38.6 (36.0-46.0) % MCV 88.9 (80.0-98.0) fL MCH 30.6 (27.0-32.0) pg MCHC 34.5 (31.0-37.0) g/dL RDW Std Deviation 39.2 (28.0-62.0) fl RDW Coeff of Mari 12 (11.0-15.0) % Plt Count 301 (150-400) K/uL MPV 9.60 (7.40-12.00) fL Neut % (Auto) (48.0-80.0) % Lymph % (Auto) (16.0-40.0) % [place] % (Auto) (0.0-15.0) % Eos % (Auto) (0.0-7.0) % Baso % (Auto) (0.0-1.5) % Neut # (Auto) (1.4-5.7) K/uL Lymph # (Auto) (0.6-2.4) K/uL [place] # (Auto) (0.0-0.8) K/uL Eos # (Auto) (0.0-0.7) K/uL Baso # (Auto) (0.0-0.1) K/uL Nucleated RBC % 0.0 /100WBC Nucleated RBCs # 0 K/uL Sodium 142 (136-145) mmol/L Potassium 4.0 (3.5-5.1) mmol/L Chloride 108 H (98-107) mmol/L Carbon Dioxide 22.1 (21.0-32.0) mmol/L BUN 10 (7.0-18.0) mg/dL Creatinine 0.8 (0.6-1.0) mg/dL Est Cr Clr Drug Dosing 80.67 mL/min Estimated GFR (MDRD) > 60.0 ml/min Glucose 94 (74-106) mg/dL Calcium 8.5 (8.5-10.1) mg/dL HCG, Qual NEGATIVE (NEG) Blood Type Antibody Screen 10/16/19 10/17/19 10/17/19 Range/Units 10:23 06:05 06:05 WBC 14.06 H (4.0-11.0) K/uL RBC 3.95 L (4.30-5.90) M/uL Hgb 12.1 (12.0-16.0) g/dL Hct 35.5 L (36.0-46.0) % MCV 89.9 (80.0-98.0) fL MCH 30.6 (27.0-32.0) pg MCHC 34.1 (31.0-37.0) g/dL RDW Std Deviation 39.4 (28.0-62.0) fl RDW Coeff of Mari 12 (11.0-15.0) % Plt Count 280 (150-400) K/uL MPV 9.60 (7.40-12.00) fL Neut % (Auto) 75.6 (48.0-80.0) % Lymph % (Auto) 18.2 (16.0-40.0) % [place] % (Auto) 5.9 (0.0-15.0) % Eos % (Auto) 0.2 (0.0-7.0) % Baso % (Auto) 0.1 (0.0-1.5) % Neut # (Auto) 10.6 H (1.4-5.7) K/uL Lymph # (Auto) 2.6 H (0.6-2.4) K/uL [place] # (Auto) 0.8 (0.0-0.8) K/uL Eos # (Auto) 0.0 (0.0-0.7) K/uL Baso # (Auto) 0.0 (0.0-0.1) K/uL Nucleated RBC % 0.0 /100WBC Nucleated RBCs # 0 K/uL Sodium 139 (136-145) mmol/L Potassium 4.0 (3.5-5.1) mmol/L Chloride 106 (98-107) mmol/L Carbon Dioxide 25.9 (21.0-32.0) mmol/L BUN 9 (7.0-18.0) mg/dL Creatinine 0.9 (0.6-1.0) mg/dL Est Cr Clr Drug Dosing 71.70 mL/min Estimated GFR (MDRD) > 60.0 ml/min Glucose 90 (74-106) mg/dL Calcium 7.9 L (8.5-10.1) mg/dL HCG, Qual (NEG) Blood Type O POSITIVE Antibody Screen NEGATIVE Med Orders - Current: Current Medications Al Hydroxide/Mg Hydroxide (Mag-Al Plus) 30 ml PO Q4H PRN PRN Reason: Indigestion Belladonna Alkaloids/Opium (B & O Supprettes No. 15a) 1 supp RECTAL Q4H PRN PRN Reason: Pain Last Admin: 10/16/19 16:56 Dose: 1 supp Docusate Sodium (Colace) 100 mg PO BID SOMMER Last Admin: 10/17/19 08:41 Dose: 100 mg Ketorolac Tromethamine (Toradol) 30 mg IVPUSH Q6H PRN PRN Reason: Pain (severe 7-10) Stop: 10/21/19 13:31 Last Admin: 10/16/19 15:41 Dose: 30 mg Morphine Sulfate (Morphine) 4 mg IVPUSH Q2H PRN PRN Reason: Pain (severe 7-10) Nicotine (Habitrol) 14 mg TRDERM DAILY SOMMER Last Admin: 10/17/19 08:41 Dose: Not Given Ondansetron HCl (Zofran) 4 mg IVPUSH Q6H PRN PRN Reason: Nausea/Vomiting Last Admin: 10/17/19 01:15 Dose: 4 mg Oxycodone/Acetaminophen (Percocet 325-5 Mg) 1 tab PO Q4H PRN PRN Reason: Pain (moderate 4-6) Last Admin: 10/17/19 07:17 Dose: 1 tab Oxycodone/Acetaminophen (Percocet 325-5 Mg) 2 tab PO Q4H PRN PRN Reason: Pain (moderate 4-6) Promethazine HCl (Phenergan) 25 mg IM Q6H PRN PRN Reason: Nausea/Vomiting Last Admin: 10/16/19 15:29 Dose: 25 mg Scopolamine (Transderm-Scop) 1.5 mg TRDERM Q72H PRN PRN Reason: Nausea Last Admin: 10/16/19 10:49 Dose: 1.5 mg Sodium Chloride (Saline Flush) 10 ml FLUSH ASDIRECTED PRN PRN Reason: Keep Vein Open Sodium Chloride (Saline Flush) 2.5 ml FLUSH ASDIRECTED PRN PRN Reason: Keep Vein Open Sodium Chloride (Normal Saline) 10 ml IV ASDIRECTED PRN PRN Reason: IV Use Discontinued Medications Albuterol (Proventil Neb Soln) 2.5 mg NEB ONETIME PRN PRN Reason: Wheezing Atropine Sulfate (Atropine 0.1 Mg/Ml) 0.5 mg IVPUSH ASDIRECTED PRN PRN Reason: Hypo-perfusion Atropine Sulfate (Atropine 0.1 Mg/Ml) 1 mg IVPUSH ASDIRECTED PRN PRN Reason: Hypo-Perfusion Bupivacaine HCl (Sensorcaine-Mpf 0.25%) Confirm Administered Dose 20 ml .ROUTE .STK-MED ONE Stop: 10/16/19 11:11 Cefazolin Sodium (Ancef) Confirm Administered Dose 1 gm .ROUTE .STK-MED ONE Stop: 10/16/19 12:11 Dexamethasone (Dexamethasone) Confirm Administered Dose 20 mg .ROUTE .STK-MED ONE Stop: 10/16/19 10:57 Dexamethasone (Dexamethasone) Confirm Administered Dose 20 mg .ROUTE .STK-MED ONE Stop: 10/16/19 10:59 Dextrose/Water (Dextrose 50% In Water) 50 ml IVPUSH ASDIRECTED PRN PRN Reason: Hypoglycemia Epinephrine HCl (Epinephrine 1:10,000) 1 mg IVPUSH ASDIRECTED PRN PRN Reason: ACLS Guidelines Fentanyl (Sublimaze) Confirm Administered Dose 250 mcg .ROUTE .STK-MED ONE Stop: 10/16/19 10:54 Fentanyl (Sublimaze) 50 - 100 mcg IVPUSH Q5M PRN PRN Reason: Pain Last Admin: 10/16/19 14:23 Dose: 50 mcg Fluorescein Sodium (Ak-Fluor) Confirm Administered Dose 5 ml .ROUTE .STK-MED ONE Stop: 10/16/19 12:29 Furosemide (Lasix) Confirm Administered Dose 40 mg .ROUTE .STK-MED ONE Stop: 10/16/19 12:30 Glycopyrrolate (Robinul) Confirm Administered Dose 0.4 mg .ROUTE .STK-MED ONE Stop: 10/16/19 13:03 Hydromorphone HCl (Dilaudid) Confirm Administered Dose 2 mg .ROUTE .STK-MED ONE Stop: 10/16/19 12:35 Cefazolin Sodium/Dextrose 1 gm (/ Premix) 50 mls @ 100 mls/hr IV ONETIME ONE Stop: 10/16/19 05:29 Last Admin: 10/16/19 15:19 Dose: Not Given Lactated Ringer's (Ringers, Lactated) 1,000 mls @ 100 mls/hr IV ASDIRECTED SOMMER Last Admin: 10/16/19 18:37 Dose: 100 mls/hr Sodium Chloride (Normal Saline) Confirm Administered Dose 20 mls @ as directed .ROUTE .STK-MED ONE Stop: 10/16/19 12:11 Ketorolac Tromethamine (Toradol) Confirm Administered Dose 30 mg .ROUTE .STK- MED ONE Stop: 10/16/19 13:17 Ketorolac Tromethamine (Toradol) 30 mg IVPUSH ONETIME ONE Stop: 10/16/19 13:31 Last Admin: 10/16/19 13:15 Dose: 30 mg Lidocaine HCl (Xylocaine-Mpf 1%) Confirm Administered Dose 5 ml .ROUTE .STK-MED ONE Stop: 10/16/19 10:57 Methylene Blue (Provayblue) Confirm Administered Dose 50 mg .ROUTE .STK-MED ONE Stop: 10/16/19 11:11 Midazolam HCl (Versed 1 Mg/Ml) Confirm Administered Dose 2 mg .ROUTE .STK-MED ONE Stop: 10/16/19 10:54 Naloxone HCl (Narcan) 0.1 mg IVPUSH ASDIRECTED PRN PRN Reason: Respiratory Depression Neostigmine Methylsulfate (Neostigmine) Confirm Administered Dose 5 mg .ROUTE .STK-MED ONE Stop: 10/16/19 13:03 Ondansetron HCl (Zofran) Confirm Administered Dose 4 mg .ROUTE .STK-MED ONE Stop: 10/16/19 10:57 Propofol (Diprivan 20 Ml) Confirm Administered Dose 200 mg .ROUTE .STK-MED ONE Stop: 10/16/19 10:54 Rocuronium [place] (Zemuron) Confirm Administered Dose 100 mg .ROUTE .STK-MED ONE Stop: 10/16/19 11:41 - Exam Wound/Incisions: Healing Well, Dressing Dry and Intact General: Alert, Oriented Lungs: Normal Respiratory Effort Cardiovascular: Regular Rate, Regular Rhythm GI/Abdominal Exam: Normal Bowel Sounds, Soft, Tender (near incisions, appropriate). No: Guarding, Rigid Extremities: Non-Tender, Normal Capillary Refill. No: Kayleen's Sign Skin: Warm, Dry, Intact Neurological: No New Focal Deficit Psy/Mental Status: Alert, Normal Affect, Normal Mood - Problem List & Annotations (1) Cervical dysplasia Status: Acute Current Visit: Yes - Problem List Review Problem List Initiated/Reviewed/Updated: Yes - My Orders Last 24 Hours: Active Orders 24 hr Category Date Time Status Patient Status [ADT] Routine ADT 10/16/19 13:31 Active Antiembolic Devices [RC] PER UNIT ROUTINE Care 10/16/19 13:31 Active May Shower [RC] ASDIRECTED Care 10/16/19 13:30 Active Notify Provider Intake and Out [RC] ASDIRECTED Care 10/16/19 13:31 Active Notify Provider Vital Signs [RC] ASDIRECTED Care 10/16/19 13:06 Active Notify Provider Vital Signs [RC] ASDIRECTED Care 10/16/19 13:31 Active Oxygen Therapy [RC] PRN Care 10/16/19 13:06 Active RT Aerosol Therapy [RC] ASDIRECTED Care 10/16/19 13:06 Active RT Aerosol Therapy [RC] ASDIRECTED Care 10/16/19 13:06 Active RT Aerosol Therapy [RC] ASDIRECTED Care 10/16/19 13:06 Active RT Incentive Spirometry [RC] Q2HWA Care 10/16/19 13:31 Active Ready for Discharge [RC] PER UNIT ROUTINE Care 10/17/19 08:47 Ordered Up With Assistance [RC] PER UNIT ROUTINE Care 10/16/19 13:31 Active Up ad Misti [RC] PER UNIT ROUTINE Care 10/16/19 13:31 Active Urinary Catheter Removal [RC] Per Unit Routine Care 10/16/19 13:31 Active Vital Signs [RC] PER UNIT ROUTINE Care 10/16/19 13:31 Active Regular Diet [DIET] Diet 10/16/19 Dinner Active Acetaminophen/oxyCODONE [Percocet 325-5 MG] Med 10/16/19 13:30 Active 1 tab PO Q4H PRN Acetaminophen/oxyCODONE [Percocet 325-5 MG] Med 10/16/19 13:30 Active 2 tab PO Q4H PRN Alum Hydrox/Mag Hydrox/Simeth [Mag-Al Plus] Med 10/16/19 13:30 Active 30 ml PO Q4H PRN Belladonna/Opium [B & O Supprettes No. 15A] Med 10/16/19 13:30 Active 1 supp RECTAL Q4H PRN Docusate Sodium [Colace] Med 10/16/19 21:00 Active 100 mg PO BID Ketorolac [Toradol] Med 10/16/19 13:30 Active 30 mg IVPUSH Q6H PRN Morphine Med 10/16/19 13:30 Active 4 mg IVPUSH Q2H PRN Nicotine [Habitrol] Med 10/16/19 16:00 Active 14 mg TRDERM DAILY Ondansetron [Zofran] Med 10/16/19 13:30 Active 4 mg IVPUSH Q6H PRN Promethazine [Phenergan] Med 10/16/19 13:30 Active 25 mg IM Q6H PRN Scopolamine [Transderm-Scop] Med 10/16/19 10:06 Active 1.5 mg TRDERM Q72H PRN Heat Therapy [OM.PC] Routine Oth 10/16/19 13:30 Ordered Peripheral IV Discontinue [OM.PC] Routine Oth 10/16/19 13:31 Ordered Sequential Compression Device [OM.PC] Per Unit Routine Oth 10/16/19 13:31 Ordered Resuscitation Status Routine Resus Stat 10/16/19 13:30 Ordered Medication Orders Al Hydroxide/Mg Hydroxide (Mag-Al Plus) 30 ml PO Q4H PRN PRN Reason: Indigestion Belladonna Alkaloids/Opium (B & O Supprettes No. 15a) 1 supp RECTAL Q4H PRN PRN Reason: Pain Last Admin: 10/16/19 16:56 Dose: 1 supp Docusate Sodium (Colace) 100 mg PO BID [facility] [place] Last Admin: 10/17/19 08:41 Dose: 100 mg Admin: 10/16/19 20:49 Dose: Not Given Ketorolac Tromethamine (Toradol) 30 mg IVPUSH Q6H PRN PRN Reason: Pain (severe 7-10) Stop: 10/21/19 13:31 Last Admin: 10/16/19 15:41 Dose: 30 mg Morphine Sulfate (Morphine) 4 mg IVPUSH Q2H PRN PRN Reason: Pain (severe 7-10) Nicotine (Habitrol) 14 mg TRDERM DAILY [facility] [place] Last Admin: 10/17/19 08:41 Dose: Not Given Admin: 10/16/19 15:19 Dose: Not Given Ondansetron HCl (Zofran) 4 mg IVPUSH Q6H PRN PRN Reason: Nausea/Vomiting Last Admin: 10/17/19 01:15 Dose: 4 mg Admin: 10/16/19 18:37 Dose: 4 mg Admin: 10/16/19 12:00 Dose: 4 mg Oxycodone/Acetaminophen (Percocet 325-5 Mg) 1 tab PO Q4H PRN PRN Reason: Pain (moderate 4-6) Last Admin: 10/17/19 07:17 Dose: 1 tab Admin: 10/17/19 01:15 Dose: 1 tab Admin: 10/16/19 18:38 Dose: 1 tab Oxycodone/Acetaminophen (Percocet 325-5 Mg) 2 tab PO Q4H PRN PRN Reason: Pain (moderate 4-6) Promethazine HCl (Phenergan) 25 mg IM Q6H PRN PRN Reason: Nausea/Vomiting Last Admin: 10/16/19 15:29 Dose: 25 mg Scopolamine (Transderm-Scop) 1.5 mg TRDERM Q72H PRN PRN Reason: Nausea Last Admin: 10/16/19 10:49 Dose: 1.5 mg Sodium Chloride (Saline Flush) 10 ml FLUSH ASDIRECTED PRN PRN Reason: Keep Vein Open Sodium Chloride (Saline Flush) 2.5 ml FLUSH ASDIRECTED PRN PRN Reason: Keep Vein Open Sodium Chloride (Normal Saline) 10 ml IV ASDIRECTED PRN PRN Reason: IV Use - Assessment Assessment (Free Text/Narrative):: POD 1 status post LAVH/bilateral salpingectomy/cystoscopy - Plan Plan (Free Text/Narrative):: Ambulating, voiding, has not trialed regular diet yet. Nausea resolved. Pain controlled overall with pain meds. VS are reassuring and labs are stable postop. Allow discharge to home once eats. Discharge to home. Discharge instructions reviewed. Follow up at [facility] 2 and 6 weeks
== END 2019-10-17 11:08 | disposition home or self-care (01) ==
LOC: MW.SDS 09:54 → MW.MS 13:58 → MW.SDS 10-17 11:08
PROVIDERS: ATTEND Obstetrics & Gynecology
DX: D06.0 Carcinoma in situ of endocervix (principal); F17.210 Nicotine dependence, cigarettes, uncomplicated; Z79.899 Other long term (current) drug therapy
CPT/HCPCS: 36415; 58552; 80048; 84703; 85025; 85027; 86850; 86900; 86901; 88307; A9270; J0690; J1100; J1170; J1885; J1940; J2001; J2250; J2405; J2550; J2704; J3010; J3490; J7120